=== PATIENT | male | born 1985 | race Caucasian/White ===

== ENCOUNTER 2020-10-10 18:42 | Emergency (ER) | payer OTHER ==
[~2020-10-10] VITALS: Ht 177.8 cm; Wt 95.5 kg
--- NOTE | 2020-10-10 19:36 | PHYS DOC ---
Past History Past Surgical History Shoulder surgeries General Adult EDM: Chief Complaint: SHOULDER INJURY HPI: HPI: "..I am in the process of moving to [place].. and I was staying at a friends house.. I was going down the stairs in my stocking feet.. and they slipped out from under me..and I fell .. dislocated this Rt. shoulder...".."Of all the times to dislocate my shoulder.." Patient is a 35 year old male who presents with above hx and complaints of Rt. shoulder dislocation. Patient has obvious dislocation of right shoulder with obvious defect. Patient does have a deltoid sensation. Patient has had 2 shoulder repairs previously for dislocations while in the . Patient is also this located left shoulder in the past. Patient denies any other injury during his fall down the stairs. Patient does have distal sensation in his hand slightly dusky vascular return however. Patient is right-hand dominant. Patient is in the process of moving to [place] . Review of Systems: Review of Systems: Constitutional: Denies fever or chills Eyes: Denies change in visual acuity HENT: Denies nasal congestion or sore throat Respiratory: Denies cough or shortness of breath Cardiovascular: Denies chest pain or edema GI: Denies abdominal pain, nausea, vomiting, bloody stools or diarrhea : Denies dysuria Musculoskeletal: Complains of right shoulder dislocation and pain Integument: Denies rash Neurologic: Denies headache, focal weakness or sensory changes Endocrine: Denies polyuria or polydipsia Lymphatic: Denies swollen glands Psychiatric: Denies depression or anxiety Family History: Family History: Noncontributory to presentation Current Medications: Current Meds: See nursing for home meds Allergies: Allergies: Allergies Coded Allergies Type Severity Reaction Last Updated Verified No Known Drug Allergies 10/10/20 No Physical Exam: PE: Constitutional: Well developed, well nourished, in moderate acute distress, non- toxic appearance. [] HENT: Normocephalic, atraumatic, bilateral external ears normal, oropharynx moist, no oral exudates, nose normal. [] Eyes: PERRLA, EOMI, conjunctiva normal, no discharge. [] Neck: Normal range of motion, no tenderness, supple, no stridor. [] Cardiovascular:Heart rate regular rhythm, no murmur [] Lungs & Thorax: Bilateral breath sounds equal apex on auscultation [] Abdomen: Bowel sounds normal, soft, no tenderness, no masses, no pulsatile masses. [] Skin: Warm, dry, no erythema, no rash. [] Back: No tenderness, no CVA tenderness. [] Extremities: Right shoulder tenderness, no cyanosis, no clubbing, ROM intact in the limbs except and right shoulder, no edema. [] Old surgery scars both shoulders Neurologic: Alert and oriented X 3, normal motor and sensory function other limbs except right shoulder, no focal deficits noted. [] Psychologic: Affect anxious, judgement normal, mood normal. [] EKG: EKG: [] Radiology/Procedures: Radiology/Procedures: [address] [address] IMAGING REPORT Signed PATIENT: NELLY LEBLANC ACCOUNT: [id number] : 1985 LOCATION: ER AGE: 35 SEX: M EXAM STATUS: DEP ER ORD. PHYSICIAN: ALO CAST MD REASON: post reduction PROCEDURE: SHOULDER RIGHT 1V XR RT SHOULDER 1 VIEW DATE: 10/10/2020 9:49 PM INDICATION: post reduction / Spl. Instructions: / History: COMPARISON: 10/10/2020. FINDINGS/ IMPRESSION: Interval reduction of the previously seen anterior glenohumeral dislocation. Electronically signed by: Eleazar Lee MD (10/11/2020 2:10 AM) [facility] DICTATED AND SIGNED BY: ELEAZAR LEE MD DATE: 10/11/20209 CC: ALO CAST MD; PCP,NO ~MTH0 0 [][address] [address] IMAGING REPORT Signed PATIENT: NELLY LEBLANC ACCOUNT: [id number] : 1985 LOCATION: ER AGE: 35 SEX: M EXAM STATUS: DEP ER ORD. PHYSICIAN: ALO CAST MD REASON: fall PROCEDURE: CHEST PA & LATERAL XR CHEST 2V INDICATION: Reason: fall / Spl. Instructions: / History: . COMPARISON STUDY: None. FINDINGS: Lungs: Normal lung volume. No pulmonary mass or consolidation. The tracheobronchial tree and hilar structures are normal. Pleura: No pleural effusion or pneumothorax. Heart and Mediastinum: The cardiomediastinal silhouette is normal. The great vessels of the thorax are normal. Bones and Soft Tissues: Right anterior glenohumeral dislocation. IMPRESSION: 1. No acute cardiopulmonary process. 2. Right anterior glenohumeral dislocation. Electronically signed by: Eleazar Lee MD (10/11/2020 2:11 AM) [facility] DICTATED AND SIGNED BY: ELEAZAR LEE MD DATE: 10/11/20209 CC: ALO CAST MD; PCP,NO ~MTH0 0 Heart Score: C/O Chest Pain: N/A Risk Factors: Risk Factors: DM, Current or recent (<one month) smoker, HTN, HLP, family history of CAD, obesity. Risk Scores: Score 0 - 3: 2.5% MACE over next 6 weeks - Discharge Home Score 4 - 6: 20.3% MACE over next 6 weeks - Admit for Clinical Observation Score 7 - 10: 72.7% MACE over next 6 weeks - Early Invasive Strategies Course & Med Decision Making: Course & Med Decision Making Pertinent Labs and Imaging studies reviewed. (See chart for details) See Procedure Note: Rt. shoulder dislocation-there was some delay in reduction procedure- ( Not enough staff to complete procedure safely). See flow sheet for med dosages. Patient received increments of propofol IV. Gentle counter traction was able to reduce right shoulder. Swath and sling placed. Distal neurovascular intact after procedure. Patient to keep shoulder immobilized on until follow-up with Ortho or primary when he gets in [place]. Patient take Tylenol and ibuprofen for pain. Use ice packs. If he has prolonged time before orthopedic evaluation. May start passive range of motion after he arrives in [place]. For marked pain may take Vicoprofen up to 4 times a day. Impression : 1. Rt. shoulder dislocation [] Dragon Disclaimer: Dragon Disclaimer: This electronic medical record was generated, in whole or in part, using a voice recognition dictation system. Departure Departure: Referrals: PCP,NO (PCP) Scripts Hydrocodone/Ibuprofen (HYDROCODONE-IBUPROFEN 7.5-200 ) 1 Each Tablet 1 TAB PO PRN Q6HRS PRN for PAIN, #30 TAB 0 Refills Prov: ALO CAST MD 10/10/20 ALO CAST MD Oct 10, 2020 19:36
[2020-10-10] MEDS ORDERED: MORPHINE SULFATE 10 MG/ML SYRINGE. SQ ONE ×2 (19:45→22:00)
[2020-10-10] MEDS ORDERED: PROPOFOL 20 ML IV PRN (19:45)
[2020-10-10 20:53] VITALS: BP 150/102
[2020-10-10] MEDS ORDERED: IV RINGERS SOLUTION,LACTATED 1,000 ML IV ONE (21:45)
[2020-10-10] MEDS ORDERED: HYDR-1179 PO (22:38)
[2020-10-10 22:40] VITALS: BP 136/64
--- NOTE | 2020-10-11 02:12 | RAD ---
XR SHOULDER_RIGHT 2+ VIEWS DATE: 10/10/2020 7:52 PM INDICATION: Pain, fall COMPARISON: None. FINDINGS/ IMPRESSION: Anterior glenohumeral dislocation. AC joint is congruent. No acute fracture. Electronically signed by: Elvis Lee MD (10/11/2020 2:10 AM) [facility]
--- NOTE | 2020-10-11 02:13 | RAD ---
XR RT SHOULDER 1 VIEW DATE: 10/10/2020 9:49 PM INDICATION: post reduction / Spl. Instructions: / History: COMPARISON: 10/10/2020. FINDINGS/ IMPRESSION: Interval reduction of the previously seen anterior glenohumeral dislocation. Electronically signed by: Elvis Lee MD (10/11/2020 2:10 AM) [facility]
--- NOTE | 2020-10-11 02:13 | RAD ---
XR CHEST 2V INDICATION: Reason: fall / Spl. Instructions: / History: . COMPARISON STUDY: None. FINDINGS: Lungs: Normal lung volume. No pulmonary mass or consolidation. The tracheobronchial tree and hilar st ructures are normal. Pleura: No pleural effusion or pneumothorax. Heart and Mediastinum: The cardiomediastinal silhouette is normal. The great vessels of the thorax ar e normal. Bones and Soft Tissues: Right anterior glenohumeral dislocation. IMPRESSION: 1. No acute cardiopulmonary process. 2. Right anterior glenohumeral dislocation. Electronically signed by: Elvis Lee MD (10/11/2020 2:11 AM) [facility]
[2020-10-11] MEDS ORDERED: PROPOFOL 20 ML IV STA ×2 (02:48→02:55)
== END 2020-10-10 22:50 | disposition home or self-care (01) ==
LOC: ER 18:42
DX: S43.004A Unspecified dislocation of right shoulder joint, initial encounter (principal); X50.9XXA Other and unspecified overexertion or strenuous movements or postures, initial encounter; Y93.89 Activity, other specified; Y92.89 Other specified places as the place of occurrence of the external cause; Y99.8 Other external cause status
CPT/HCPCS: 23650; 71046; 73020; 73030; 96360; 96372; 99152; 99285; J2270; J7120; J2704